=== PATIENT | male | born 1935 | race Caucasian/White ===

== ENCOUNTER → 2018-12-16 | Outpatient (CLI) | payer MEDICARE, OTHER ==
[2018-12-16 12:58] LABS: Urine Blood Negative /uL (Negative); Urine Specific Gravity 1.009 (1.001-1.035)
[2018-12-16 13:04] LABS: Basophils # (auto) 0 uL; Basophils % (auto) 0.3 % (0.0-2.0); Eosinophils # (auto) 0.1 uL; Eosinophils % (auto) 1.9 % (0.0-7.0); Hematocrit 39.6 % (41.0-53.0); Hemoglobin 13.2 g/dL (13.5-17.5); Lymphocytes # (auto) 3.2 uL; Lymphocytes % (auto) 41.6 % (10.0-50.0); Mean Corpuscular Hemoglobin 32.8 pg (28.0-32.0); Mean Corpuscular Hgb Conc. 33.2 g/dL (32.0-36.0); Mean Corpuscular Volume 98.7 fL (80.0-100.0); Monocytes # (auto) 0.8 uL; Monocytes % (auto) 9.8 % (0.0-12.0); Neutrophils # (auto) 3.6 uL; Neutrophils % (auto) 46.4 % (37.0-80.0); Nucleated Red Blood Cells % 0.1 %; Platelet Count (auto) 108 10^3/uL (140-450); Red Blood Cells 4.01 10^6/uL (4.5-5.90); Red Cell Distribution Width 14.4 % (11.8-14.3); White Blood Cell 7.7 10^3/uL (4.4-10.8)
[2018-12-16 16:17] LABS: Free T4 (Free Thyroxine) 1.26 ng/dL (0.89-1.76)
[2018-12-16 16:18] LABS: Anion Gap 6 (5-15); Carbon Dioxide 30 mmol/L (21-32); Chloride 103 mmol/L (98-107); Potassium 3.7 mmol/L (3.5-5.1); Sodium 139 mmol/L (136-145)
[2018-12-16 16:19] LABS: Glucose 123 mg/dL (74-106)
[2018-12-16 16:20] LABS: Alkaline Phosphatase 100 U/L (45-117); Aspartate Aminotransferase 29 U/L (15-37); Blood Urea Nitrogen 31 mg/dL (7-18); GFR African American 65 mL/min; GFR Non-African American 54 mL/min
[2018-12-16 16:21] LABS: Alanine Aminotransferase 18 U/L (16-61); Albumin 3.7 g/dL (3.4-5.0); Bilirubin, Total 0.8 mg/dL (0.2-1.0); Calcium 9.4 mg/dL (8.5-10.1); Cholesterol 157 mg/dL (< 200); HDL Cholesterol 37 mg/dL (40-59); LDL Cholesterol 76 mg/dL (< 100); Total Protein 7.7 g/dL (6.4-8.2); Triglycerides 161 mg/dL (< 150)
[2018-12-16 16:25] LABS: Prostate Specific Antigen 4.67 ng/mL (0.0-4.0)
== END | disposition home or self-care (01) ==
LOC: Rad HDHVI 09:02
PROVIDERS: ATTEND Internal Medicine Cardiovascular Disease
DX: E03.9 Hypothyroidism, unspecified (principal); K90.9 Intestinal malabsorption, unspecified; C61 Malignant neoplasm of prostate; E29.1 Testicular hypofunction; N39.0 Urinary tract infection, site not specified; I50.9 Heart failure, unspecified; D51.9 Vitamin B12 deficiency anemia, unspecified; I51.7 Cardiomegaly; Z79.899 Other long term (current) drug therapy
CPT/HCPCS: 36415; 80053; 80061; 81003; 82306; 82607; 83036; 83880; 84153; 84154; 84403; 84439; 84443; 85025; 93306